=== PATIENT | female | born 1990 | race Two or more races ===

== ENCOUNTER 2019-09-08 06:39 | Inpatient (IN) | payer MEDICAID ==
[~2019-09-08] VITALS: Ht 160 cm; Wt 67.1 kg
[2019-09-08] MEDS ORDERED: MAGNESIUM/ALUMINUM HYDROXIDE/SIMETHICONE 30ML UDC PO STA (07:57)
[2019-09-08] MEDS ORDERED: MORPHINE SULFATE 4 MG/ML CPJ (NOT FOR IM USE) IV ONE ×2 (08:15→09:15)
[2019-09-08] MEDS ORDERED: ONDANSETRON HCL 4MG/2ML INJ IV ONE (08:15)
[2019-09-08 08:35] LABS: BASOPHILS % 0.2 % (0.0-2.0); EOSINOPHILS % 0.3 % (0.0-5.0); HEMATOCRIT. 37.6 % (36.0-48.0); HEMOGLOBIN. 12.7 g/dL (12.0-16.0); LYMPHOCYTES % 8.4 % (20.0-50.0); MEAN CORPUSCULAR HEMOGLOBIN 32.2 pg (28.0-32.0); MEAN CORPUSCULAR VOLUME 95.2 fL (81.0-99.0); MEAN PLATELET VOLUME 8.3 fl (7.4-10.4); MONOCYTES % 3.1 % (2.0-8.0); PLATELET 228 x1000/uL (130-400); RED BLOOD CELL COUNT 3.95 mill/uL (4.2-5.4); RED CELL DISTRIBUTION WIDTH 11.9 % (11.6-14.6)
[2019-09-08 08:39] LABS: CHLORIDE 106 mEq/L (98-107)
[2019-09-08] MEDS ORDERED: METOCLOPRAMIDE HCL 10MG/2ML VIAL IV NR (09:15)
[2019-09-08] MEDS ORDERED: DICYCLOMINE HCL 10MG/ML 2ML AMP IM ONE (09:15)
[2019-09-08] MEDS ORDERED: PIPERACILLIN/TAZOBACTAM 3.375GM/50ML PREMIX IV ONE (09:30)
[2019-09-08] MEDS ORDERED: PIPERACILLIN/TAZ 3.375G PREMIX 50 ML IV NR (09:45)
[2019-09-08] MEDS ORDERED: SODIUM CHLORIDE 0.9% 1,000 ML IV ONE (10:42)
[2019-09-08 14:50] LABS: CLARITY URINE CLEAR (CLEAR); COLOR URINE YELLOW (YELLOW); KETONES URINE NEGATIVE (NEGATIVE); LEUKOCYTE ESTERASE URINE NEGATIVE (NEGATIVE); NITRITE URINE NEGATIVE (NEGATIVE); OCCULT BLOOD URINE NEGATIVE (NEGATIVE); PH URINE 8.5 (4.5-8.0); PROTEIN URINE NEGATIVE (NEGATIVE); SPECIFIC GRAVITY URINE 1.014 (1.005-1.030); UROBILINOGEN URINE 0.2 E.U./dL (0.2-1.0)
[2019-09-08] MEDS ORDERED: ACETAMINOPHEN 325MG TABLET PO PRN (15:00)
[2019-09-08] MEDS ORDERED: IPRATROPIUM/ALBUTEROL 0.5-3(2.5)MG/3ML NEB HHN PRN (15:00)
[2019-09-08] MEDS ORDERED: PIPERACILLIN/TAZ 3.375G PREMIX 50 ML IV SCH (15:00)
[2019-09-08 15:46] LABS: *BARBITURATES SCREEN URINE NEGATIVE (NEGATIVE); *BENZODIAZEPINES SCREEN URINE NEGATIVE (NEGATIVE); *COCAINE SCREEN URINE NEGATIVE (NEGATIVE); METHADONE URINE SCREEN NEGATIVE (NEGATIVE); PHENCYCLIDINE URINE SCREEN NEGATIVE (NEGATIVE)
[2019-09-08 15:47] LABS: CANNABINOID URINE SCREEN PRESUMTIVE POSITIVE (NEGATIVE); OPIATES URINE SCREEN PRESUMTIVE POSITIVE (NEGATIVE)
[2019-09-08 15:51] LABS: *AMPHETAMINES SCREEN URINE NEGATIVE (NEGATIVE)
[2019-09-08] MEDS: HYDROMORPHONE HCL/PF 2MG/ML CPJ IV PRN ×2 (17:16→20:43)
[2019-09-08 18:20] VITALS: BP 113/61
[2019-09-08 18:22] VITALS: BP 113/61
[2019-09-08 20:00] VITALS: BP 118/60
[2019-09-08] MEDS: ENOXAPARIN 40MG/0.4ML SYR SUBCUT SCH (20:42)
[2019-09-08] MEDS: ONDANSETRON HCL 4MG/2ML INJ IV PRN (20:42)
[2019-09-08] MEDS: PIPERACILLIN/TAZOBACTAM 3.375 G in DEXT 5% WATER 100 ML IV SCH (22:11)
[2019-09-08] MEDS: DEXT 5%/0.45% NACL KCL 40MEQ/L 1,000 ML IV SCH (22:12)
[2019-09-09] VITALS: BP 116/58
[2019-09-09 04:00] VITALS: BP 109/67
[2019-09-09] MEDS: PIPERACILLIN/TAZOBACTAM 3.375 G in DEXT 5% WATER 100 ML IV SCH ×3 (05:37→21:32)
[2019-09-09] MEDS: HYDROMORPHONE HCL/PF 2MG/ML CPJ IV PRN ×4 (06:17→23:18)
[2019-09-09] MEDS: ONDANSETRON HCL 4MG/2ML INJ IV PRN ×2 (06:18→20:20)
[2019-09-09 08:00] VITALS: BP 96/54
[2019-09-09 08:03] LABS: BASOPHILS % 0.1 % (0.0-2.0); EOSINOPHILS % 0.4 % (0.0-5.0); HEMATOCRIT. 37.4 % (36.0-48.0); HEMOGLOBIN. 12.6 g/dL (12.0-16.0); LYMPHOCYTES % 12.1 % (20.0-50.0); MEAN CORPUSCULAR HEMOGLOBIN 31.9 pg (28.0-32.0); MEAN PLATELET VOLUME 8.7 fl (7.4-10.4); MONOCYTES % 7.6 % (2.0-8.0); NEUTROPHILS % 79.8 % (40.0-76.0); PLATELET 198 x1000/uL (130-400); RED BLOOD CELL COUNT 3.94 mill/uL (4.2-5.4); RED CELL DISTRIBUTION WIDTH 12.4 % (11.6-14.6)
[2019-09-09 08:04] LABS: CHLORIDE 104 mEq/L (98-107)
[2019-09-09] MEDS: FAMOTIDINE 20MG/2ML VIAL IV SCH (08:28)
[2019-09-09] MEDS ORDERED: MAGNESIUM 2 G PREMIX 50 ML IV ONE (09:15)
[2019-09-09 12:00] VITALS: BP 101/53
[2019-09-09] MEDS: DEXT 5%/0.45% NACL KCL 40MEQ/L 1,000 ML IV SCH ×3 (12:01→21:32)
[2019-09-09] MEDS: POTASSIUM CHLORIDE 20MEQ TABLET SR PO SCH (12:01)
[2019-09-09 16:00] VITALS: BP 97/61
[2019-09-09 20:00] VITALS: BP 102/69
[2019-09-09] MEDS: ENOXAPARIN 40MG/0.4ML SYR SUBCUT SCH (21:32)
[2019-09-10 02:02] VITALS: BP 114/63
[2019-09-10] MEDS: HYDROMORPHONE HCL/PF 2MG/ML CPJ IV PRN ×6 (02:13→23:48)
[2019-09-10 04:00] VITALS: BP 91/55
[2019-09-10] MEDS: PIPERACILLIN/TAZOBACTAM 3.375 G in DEXT 5% WATER 100 ML IV SCH ×3 (05:35→22:02)
[2019-09-10 07:04] LABS: BASOPHILS % 0.2 % (0.0-2.0); EOSINOPHILS % 1.8 % (0.0-5.0); HEMATOCRIT. 36.7 % (36.0-48.0); HEMOGLOBIN. 12.4 g/dL (12.0-16.0); LYMPHOCYTES % 24.1 % (20.0-50.0); MEAN CORPUSCULAR HEMOGLOBIN 32.2 pg (28.0-32.0); MEAN CORPUSCULAR VOLUME 95.3 fL (81.0-99.0); MEAN PLATELET VOLUME 8.6 fl (7.4-10.4); MONOCYTES % 7.4 % (2.0-8.0); NEUTROPHILS % 66.5 % (40.0-76.0); PLATELET 198 x1000/uL (130-400); RED BLOOD CELL COUNT 3.85 mill/uL (4.2-5.4)
[2019-09-10 08:00] VITALS: BP 98/55
[2019-09-10 08:05] LABS: CHLORIDE 106 mEq/L (98-107)
[2019-09-10] MEDS: FAMOTIDINE 20MG/2ML VIAL IV SCH (09:01)
[2019-09-10] MEDS: POTASSIUM CHLORIDE 20MEQ TABLET SR PO SCH (09:01)
[2019-09-10] MEDS: DEXT 5%/0.45% NACL KCL 40MEQ/L 1,000 ML IV SCH ×2 (10:46→17:13)
[2019-09-10 12:00] VITALS: BP 109/38
[2019-09-10 15:45] VITALS: BP 102/48
[2019-09-10 20:00] VITALS: BP 100/57
[2019-09-11] VITALS: BP 103/66
[2019-09-11] MEDS: DEXT 5%/0.45% NACL KCL 40MEQ/L 1,000 ML IV SCH (02:14)
[2019-09-11 04:00] VITALS: BP 102/60
[2019-09-11] MEDS: HYDROMORPHONE HCL/PF 2MG/ML CPJ IV PRN ×3 (04:40→09:23)
[2019-09-11] MEDS: PIPERACILLIN/TAZOBACTAM 3.375 G in DEXT 5% WATER 100 ML IV SCH ×3 (05:44→22:27)
[2019-09-11] MEDS ORDERED: BUPIVACAINE HCL 0.5% (5MG/ML) 50ML ONE (07:07)
[2019-09-11] MEDS ORDERED: SKIN ADHESIVE 0.7 GM EA TOP ONE (07:07)
[2019-09-11] MEDS ORDERED: FENTANYL CITRATE/PF 50MCG/ML 2ML VIAL ONE (07:12)
[2019-09-11] MEDS ORDERED: SUCCINYLCHOLINE CHLORIDE 200MG/10ML IV ONE (07:12)
[2019-09-11] MEDS ORDERED: MIDAZOLAM HCL 2 MG/2 ML VIAL ONE (07:12)
[2019-09-11] MEDS ORDERED: EPHEDRINE SULFATE 50MG/ML VIAL ONE (07:12)
[2019-09-11] MEDS ORDERED: PROPOFOL 200MG/20ML VIAL IV ONE (07:12)
[2019-09-11] MEDS ORDERED: LIDOCAINE HCL/PF 1% 10 MG/ML 5ML VIAL ONE (07:12)
[2019-09-11] MEDS ORDERED: SODIUM CHLORIDE 0.9% 10ML VIAL ONE (07:16)
[2019-09-11] MEDS ORDERED: ROCURONIUM BROMIDE 10MG/ML VIAL 5ML IV ONE (07:51)
[2019-09-11 07:53] LABS: BASOPHILS % 0.1 % (0.0-2.0); HEMATOCRIT. 35.6 % (36.0-48.0); HEMOGLOBIN. 12.5 g/dL (12.0-16.0); LYMPHOCYTES % 16.1 % (20.0-50.0); MEAN PLATELET VOLUME 8.5 fl (7.4-10.4); MONOCYTES % 7.4 % (2.0-8.0); NEUTROPHILS % 74.4 % (40.0-76.0); PLATELET 206 x1000/uL (130-400); RED BLOOD CELL COUNT 3.79 mill/uL (4.2-5.4); RED CELL DISTRIBUTION WIDTH 11.7 % (11.6-14.6)
[2019-09-11 07:56] LABS: CHLORIDE 104 mEq/L (98-107)
[2019-09-11] MEDS ORDERED: ONDANSETRON HCL 4MG/2ML INJ ONE (08:08)
[2019-09-11] MEDS ORDERED: DEXAMETHASONE 4MG/ML 1ML VIAL ONE (08:08)
[2019-09-11] MEDS ORDERED: ESMOLOL HCL 10MG/ML 10ML VIAL IV ONE (08:17)
[2019-09-11] MEDS ORDERED: GLYCOPYRROLATE 0.2 MG/ML 2ML VIAL ONE (08:33)
[2019-09-11] MEDS ORDERED: NEOSTIGMINE METHYLSULFATE 1MG/ML 10 ML VIAL ONE (08:38)
[2019-09-11] MEDS: FAMOTIDINE 20MG/2ML VIAL IV SCH (09:00)
[2019-09-11] MEDS: POTASSIUM CHLORIDE 20MEQ TABLET SR PO SCH (09:00)
[2019-09-11] MEDS: ONDANSETRON HCL 4MG/2ML INJ IV PRN (09:08)
[2019-09-11] MEDS ORDERED: MORPHINE SULFATE 2 MG/ML CPJ (NOT FOR IM USE) IV PRN (09:15)
[2019-09-11] MEDS ORDERED: HYDROCODONE/ACETAMINOPHEN 5/325MG TABLET PO PRN ×2 (09:15)
[2019-09-11] MEDS: DEXT 5%/0.45% NACL KCL 20MEQ/L 1,000 ML IV SCH ×2 (11:02→20:47)
[2019-09-11 12:00] VITALS: BP 117/61
[2019-09-11] MEDS: MORPHINE SULFATE 4 MG/ML CPJ (NOT FOR IM USE) IV PRN ×3 (13:13→20:54)
[2019-09-11] MEDS: SODIUM CHLORIDE 0.9% INJ 3ML FLUSH IVF SCH ×2 (13:20→22:27)
[2019-09-11 16:00] VITALS: BP 113/70
[2019-09-11 20:00] VITALS: BP 121/70
[2019-09-12] VITALS: BP 117/61
[2019-09-12] MEDS: MORPHINE SULFATE 4 MG/ML CPJ (NOT FOR IM USE) IV PRN (00:41)
[2019-09-12 04:00] VITALS: BP 120/68
[2019-09-12] MEDS: SODIUM CHLORIDE 0.9% INJ 3ML FLUSH IVF SCH (06:14)
[2019-09-12] MEDS: DEXT 5%/0.45% NACL KCL 20MEQ/L 1,000 ML IV SCH (06:23)
[2019-09-12] MEDS: PIPERACILLIN/TAZOBACTAM 3.375 G in DEXT 5% WATER 100 ML IV SCH (06:23)
[2019-09-12 08:00] VITALS: BP 111/64
[2019-09-12] MEDS: POTASSIUM CHLORIDE 20MEQ TABLET SR PO SCH (10:36)
[2019-09-12 10:38] VITALS: BP 105/59
[2019-09-12] MEDS: FAMOTIDINE 20MG/2ML VIAL IV SCH (10:39)
[2019-09-12 12:31] VITALS: BP 105/59
[2019-09-12 13:20] VITALS: BP 105/59
== END 2019-09-12 13:20 | disposition home or self-care (01) | DRG 263 ==
LOC: ER 06:39 → EDBEDREQ 10:49 → ENRESERV 16:00 → CANRESERV 16:08 → ENRESERV 16:08 → 6EST 17:57
PROVIDERS: ADMIT Internal Medicine Geriatric Medicine; ATTEND Internal Medicine Geriatric Medicine
PROC: 0FT44ZZ Resection of Gallbladder, Percutaneous Endoscopic Approach (ICD-10-PCS; principal; 2019-09-11)
DX: K80.62 Calculus of gallbladder and bile duct with acute cholecystitis without obstruction (principal); F12.10 Cannabis abuse, uncomplicated; F17.210 Nicotine dependence, cigarettes, uncomplicated
CPT/HCPCS: 36415; 73706; 76705; 80076; 80305; 81003; 82248; 83036; 83735; 88304; 96374; 99285; C1893; J0330; J0500; J1100; J1170; J1650; J2250; J2270; J2405; J2543; J2704; J2710; J2765; J3010; J3490; J7030; J7060

== ENCOUNTER 2021-03-30 02:04 | Emergency (ER) | payer MEDICAID ==
[~2021-03-30] VITALS: Ht 160 cm; Wt 58.3 kg
[2021-03-30] MEDS ORDERED: ONDANSETRON 4MG ODT PO STA (02:30)
[2021-03-30] MEDS ORDERED: LIDOCAINE HCL/EPINEPHRINE 1%-EPI 1:100,000 20 ML VIAL INFIL ONE (02:30)
[2021-03-30] MEDS ORDERED: BACITRACIN ZINC OINT UDPKT TOP ONE (02:30)
[2021-03-30] MEDS ORDERED: IBUPROFEN 600MG TABLET PO STA (02:30)
[2021-03-30 02:54] LABS: BASOPHILS % 0.3 % (0.0-2.0); EOSINOPHILS % 0.6 % (0.0-5.0); HEMATOCRIT. 37.8 % (36.0-48.0); LYMPHOCYTES % 25.8 % (20.0-50.0); MEAN CORPUSCULAR HEMOGLOBIN 32.2 pg (28.0-32.0); MEAN CORPUSCULAR VOLUME 93.5 fL (81.0-99.0); MEAN PLATELET VOLUME 7.3 fl (7.4-10.4); MONOCYTES % 4.6 % (2.0-8.0); NEUTROPHILS % 68.7 % (40.0-76.0); PLATELET 240 x1000/uL (130-400); RED BLOOD CELL COUNT 4.04 mill/uL (4.2-5.4); RED CELL DISTRIBUTION WIDTH 12.2 % (11.6-14.6)
[2021-03-30 03:02] LABS: CHLORIDE 108 mEq/L (98-107)
[2021-03-30 03:06] LABS: ETHANOL BLOOD 47 mg/dL
[2021-03-30] MEDS ORDERED: KETOROLAC 60MG/2ML VIAL IM STA (03:16)
[2021-03-30 03:39] LABS: CLARITY URINE CLEAR (CLEAR); COLOR URINE YELLOW (YELLOW); KETONES URINE NEGATIVE (NEGATIVE); LEUKOCYTE ESTERASE URINE 2+ (NEGATIVE); NITRITE URINE NEGATIVE (NEGATIVE); OCCULT BLOOD URINE TRACE (NEGATIVE); PH URINE 6.5 (4.5-8.0); PROTEIN URINE NEGATIVE (NEGATIVE); SPECIFIC GRAVITY URINE 1.021 (1.005-1.030)
[2021-03-30 03:59] LABS: *BARBITURATES SCREEN URINE NEGATIVE (NEGATIVE); *BENZODIAZEPINES SCREEN URINE NEGATIVE (NEGATIVE)
[2021-03-30 04:00] LABS: METHADONE URINE SCREEN NEGATIVE (NEGATIVE); OPIATES URINE SCREEN NEGATIVE (NEGATIVE); PHENCYCLIDINE URINE SCREEN NEGATIVE (NEGATIVE)
[2021-03-30 04:30] LABS: *AMPHETAMINES SCREEN URINE PRESUMTIVE POSITIVE (NEGATIVE); CANNABINOID URINE SCREEN PRESUMTIVE POSITIVE (NEGATIVE)
[2021-03-30 05:17] LABS: *COCAINE SCREEN URINE NEGATIVE (NEGATIVE)
[2021-03-30] MEDS ORDERED: LORAZEPAM 2MG/ML CPJ IM ONE (08:45)
[2021-03-30] MEDS ORDERED: HALOPERIDOL LACTATE 5MG/ML VIAL IM ONE (08:45)
[2021-03-31 00:05] VITALS: BP 112/65
== END 2021-03-31 02:10 | disposition home or self-care (01) ==
LOC: ER 02:04
DX: S61.512A Laceration without foreign body of left wrist, initial encounter (principal); X78.8XXA Intentional self-harm by other sharp object, initial encounter; F33.2 Major depressive disorder, recurrent severe without psychotic features; R45.1 Restlessness and agitation; Z78.1 Physical restraint status; Y93.89 Activity, other specified; Y92.89 Other specified places as the place of occurrence of the external cause; F43.12 Post-traumatic stress disorder, chronic; F15.10 Other stimulant abuse, uncomplicated; F16.10 Hallucinogen abuse, uncomplicated; F12.10 Cannabis abuse, uncomplicated; Z62.810 Personal history of physical and sexual abuse in childhood; Z63.8 Other specified problems related to primary support group
CPT/HCPCS: 36415; 73090; 80048; 80305; 80307; 80320; 80329; 81003; 81025; 85025; 96372; 99285; A4217; J1630; J1885; J2060; J3490; Q0162; Z7610; G0480